=== PATIENT | female | born 1955 | race Hispanic/Latino ===

== ENCOUNTER 2017-07-13 09:31 | Outpatient (CLI) | payer OTHER ==
--- NOTE | 2017-07-13 15:26 | Ultrasound Report ---
Diagnostic right mammogram and targeted right breast ultrasound. History: Recall. Findings: On the spot compression image in the CC projection, or is partial effacement of the previously described small asymmetry, although this cannot be seen on the spot compression image in the MLO projection or on the 90 degree medial lateral view. Sonographic evaluation of the area of interest demonstrates a circumscribed hypoechoic lesion at the 12:00 position measuring 8.5 x 4.3 mm. There is no acoustic shadowing. This lesion is too large to represent the mammographic density. No additional focal findings are seen. Impression: 8.5 x 4.36 mm right hypoechoic lesion which has benign features, but no mammographic correlate. BI-RADS code: 3. Recommendation: A six-month followup ultrasound is recommended.
== END 2017-07-13 09:32 | disposition home or self-care (01) ==
LOC: MAMMO 09:31
PROVIDERS: ATTEND Obstetrics & Gynecology
DX: N64.89 Other specified disorders of breast (principal)